=== PATIENT | female | born 1950 | race African-American/Black ===

== ENCOUNTER → 2016-10-05 14:30 | Outpatient (CLI) | payer MEDICARE, MEDICAID ==
[2015-08-11 23:16] VITALS: BMI 27.5
[~2016-10-05 14:30] MED LIST: ASPIRIN325 MG PO; BAYER CHEWABLE81 MG PO; HYDROCHLOROTHIA25 MG PO; METOPROLOL TAR100 M1 PO; NORVASC10 MG PO; PLAVIX75 MG PO; ZANAFLEX4 MG PO
== END | disposition home or self-care (01) ==
LOC: D.US 14:30
DX: R79.1 Abnormal coagulation profile (principal)

== ENCOUNTER 2016-10-21 15:56 | Emergency (ER) | payer MEDICARE, MEDICAID ==
[2015-08-11 23:16] VITALS: BMI 27.5
[2016-10-21 16:25] LABS: BASOPHILS 0.1 % (0.0-2.0); EOSINOPHILS 0.9 % (0-7); HEMATOCRIT 28.5 % (36.0-48.0); HEMOGLOBIN 9.7 g/dL (12-16); IMMATURE GRANULOCYTES 0.2 % (0-5); LYMPHOCYTES 13.9 % (15-50); MCH 30.8 pg (26.0-34.0); MCV 90.5 fL (80.0-100.0); MONOCYTES 11.6 % (2-11); NEUTROPHILS 73.3 % (40-80); RBC 3.15 10x6/uL (4.00-5.40); RDW 14.2 % (11.5-14.5); WBC 9.3 10x3/uL (4.8-10.8)
[2016-10-21 16:27] LABS: PLATELET COUNT 151 10x3/uL (130-400)
[2016-10-21 16:42] LABS: ALBUMIN 3.3 g/dL (3.4-5.0); ALKALINE PHOSPHATASE 55 U/L (46-116); ALT (SGPT) 9 U/L (10-68); CALC OSMOLALITY 284 mosm/kg (275-300); CALCIUM 8.6 mg/dL (8.5-10.1); CARBON DIOXIDE 23.1 mmol/L (21.0-32.0); CHLORIDE - SERUM 101 mmol/L (98-107); CREATININE - SERUM 1.6 mg/dL (0.6-1.3); GLUCOSE 106 mg/dL (74-106); PROTEIN - SERUM 8.8 g/dL (6.4-8.2); SODIUM 140 mmol/L (136-145); UREA NITROGEN 30 mg/dL (7-18); eGFR NON AFRICAN AMERICAN 34 mL/min (90-120)
[2016-10-21 17:11] LABS: CHOL - HDL RATIO 2.6 ratio (2.3-4.1); CHOLESTEROL, TOTAL 179 mg/dL (0-200); CKMB 0.4 U/L (0.0-3.6); CREATINE KINASE 48 UL (21-215); HDL CHOLESTEROL 69 mg/dL (32-96); LDL CHOLESTEROL 79 mg/dL (0-100); LDL-HDL RATIO 1.1 ratio (1.5-3.5); TRIGLYCERIDE 155 mg/dL (30-200); TROPONIN-I < 0.017 ng/mL (0.000-0.060)
== END 2016-10-21 18:10 | disposition home or self-care (01) ==
LOC: D.ER 15:56
PROVIDERS: Emergency Medicine
DX: R07.9 Chest pain, unspecified (principal); I25.10 Atherosclerotic heart disease of native coronary artery without angina pectoris; I10 Essential (primary) hypertension; I73.9 Peripheral vascular disease, unspecified; F17.200 Nicotine dependence, unspecified, uncomplicated

== ENCOUNTER 2016-10-25 16:36 | Emergency (ER) | payer MEDICARE, MEDICAID ==
[2015-08-11 23:16] VITALS: BMI 27.5
== END 2016-10-25 18:58 | disposition home or self-care (01) ==
LOC: D.ER 16:36
DX: M16.12 Unilateral primary osteoarthritis, left hip (principal); M25.552 Pain in left hip; I25.10 Atherosclerotic heart disease of native coronary artery without angina pectoris; I73.9 Peripheral vascular disease, unspecified; F17.200 Nicotine dependence, unspecified, uncomplicated

== ENCOUNTER 2017-01-21 16:47 | Emergency (ER) | payer MEDICARE, MEDICAID ==
[2015-08-11 23:16] VITALS: BMI 27.5
== END 2017-01-21 19:25 | disposition left against medical advice (07) ==
LOC: D.ER 16:47
DX: M54.2 Cervicalgia (principal)

== ENCOUNTER 2017-03-10 07:58 | Emergency (ER) | payer MEDICARE, MEDICAID ==
[2015-08-11 23:16] VITALS: BMI 27.5
[2017-03-10 08:53] LABS: BASOPHILS 0.2 % (0-2); EOSINOPHILS 1.8 % (0-7); HEMATOCRIT 33.1 % (36.0-48.0); HEMOGLOBIN 11.1 g/dL (12-16); IMMATURE GRANULOCYTES 0.2 % (0-5); LYMPHOCYTES 27.8 % (15-50); MCH 30.2 pg (26.0-34.0); MCHC 33.5 g/dL (31.0-37.0); MCV 90.2 fL (80.0-100.0); MEAN PLATELET VOLUME 10.7 fL (7.4-10.4); MONOCYTES 11.1 % (2-11); NEUTROPHILS 58.9 % (40-80); PLATELET COUNT 172 10x3/uL (130-400); RBC 3.67 10x6/uL (4.00-5.40); RDW 14.7 % (11.5-14.5); WBC 8.2 10x3/uL (4.8-10.8)
[2017-03-10 09:10] LABS: ALKALINE PHOSPHATASE 67 U/L (46-116); ALT (SGPT) 12 U/L (10-68); BILIRUBIN - TOTAL 0.48 mg/dL (0.2-1.3); CALC OSMOLALITY 288 mosm/kg (275-300); CALCIUM 9.5 mg/dL (8.5-10.1); CARBON DIOXIDE 21.3 mmol/L (21.0-32.0); CHLORIDE - SERUM 101 mmol/L (98-107); CREATININE - SERUM 1.9 mg/dL (0.6-1.3); GLUCOSE 104 mg/dL (74-106); POTASSIUM - SERUM 3.4 mmol/L (3.5-5.1); PROTEIN - SERUM 9.6 g/dL (6.4-8.2); SODIUM 138 mmol/L (136-145); UREA NITROGEN 49 mg/dL (7-18); eGFR NON AFRICAN AMERICAN 28 mL/min (90-120)
[2017-03-10 09:21] LABS: CHOL - HDL RATIO 2.5 ratio (2.3-4.1); CHOLESTEROL, TOTAL 188 mg/dL (0-200); CREATINE KINASE 76 UL (21-215); HDL CHOLESTEROL 74 mg/dL (32-96); LDL CHOLESTEROL 74 mg/dL (0-100); TRIGLYCERIDE 202 mg/dL (30-200)
[2017-03-10 09:22] LABS: TROPONIN-I < 0.017 ng/mL (0.000-0.060)
== END 2017-03-10 11:39 | disposition home or self-care (01) ==
LOC: D.ER 07:58
PROVIDERS: Family Medicine
DX: M79.1 Myalgia (principal); F17.200 Nicotine dependence, unspecified, uncomplicated; I10 Essential (primary) hypertension; M54.2 Cervicalgia

== ENCOUNTER 2017-03-27 06:56 | Emergency (ER) | payer MEDICARE, MEDICAID ==
[2015-08-11 23:16] VITALS: BMI 27.5
[2017-03-27 07:39] LABS: BASOPHILS 0.2 % (0-2); EOSINOPHILS 6.9 % (0-7); HEMOGLOBIN 11.1 g/dL (12-16); IMMATURE GRANULOCYTES 0.2 % (0-5); LYMPHOCYTES 19.5 % (15-50); MCH 30.4 pg (26.0-34.0); MCHC 33.6 g/dL (31.0-37.0); MCV 90.4 fL (80.0-100.0); MEAN PLATELET VOLUME 10.6 fL (7.4-10.4); MONOCYTES 9.5 % (2-11); NEUTROPHILS 63.7 % (40-80); RBC 3.65 10x6/uL (4.00-5.40); RDW 14.2 % (11.5-14.5); WBC 9.2 10x3/uL (4.8-10.8)
[2017-03-27 07:52] LABS: PLATELET COUNT 218 10x3/uL (130-400)
[2017-03-27 08:05] LABS: ALKALINE PHOSPHATASE 83 U/L (46-116); ALT (SGPT) 15 U/L (10-68); BILIRUBIN - TOTAL 0.24 mg/dL (0.2-1.3); CALC OSMOLALITY 286 mosm/kg (275-300); CARBON DIOXIDE 26.6 mmol/L (21.0-32.0); CHLORIDE - SERUM 97 mmol/L (98-107); CREATINE KINASE 67 UL (21-215); CREATININE - SERUM 2.5 mg/dL (0.6-1.3); GLUCOSE 92 mg/dL (74-106); POTASSIUM - SERUM 3.8 mmol/L (3.5-5.1); PROTEIN - SERUM 9.7 g/dL (6.4-8.2); SODIUM 137 mmol/L (136-145); UREA NITROGEN 50 mg/dL (7-18); eGFR NON AFRICAN AMERICAN 20 mL/min (90-120)
[2017-03-27 08:08] LABS: CALCIUM 9.7 mg/dL (8.5-10.1); TROPONIN-I < 0.017 ng/mL (0.000-0.060)
== END 2017-03-27 10:36 | disposition home or self-care (01) ==
LOC: D.ER 06:56
PROVIDERS: Emergency Medicine
DX: R07.9 Chest pain, unspecified (principal); I25.10 Atherosclerotic heart disease of native coronary artery without angina pectoris; N17.9 Acute kidney failure, unspecified; E86.0 Dehydration; D64.9 Anemia, unspecified; K59.00 Constipation, unspecified; I10 Essential (primary) hypertension; Z86.73 Personal history of transient ischemic attack (TIA), and cerebral infarction without residual deficits; F17.200 Nicotine dependence, unspecified, uncomplicated

== ENCOUNTER 2017-04-02 23:56 | Emergency (ER) | payer MEDICARE, MEDICAID ==
[2015-08-11 23:16] VITALS: BMI 27.5
== END 2017-04-03 02:02 | disposition home or self-care (01) ==
LOC: D.ER 23:56
DX: M54.12 Radiculopathy, cervical region (principal); F17.200 Nicotine dependence, unspecified, uncomplicated

== ENCOUNTER 2017-05-23 09:12 | Emergency (ER) | payer MEDICARE, MEDICAID ==
[2015-08-11 23:16] VITALS: BMI 27.5
== END 2017-05-23 11:08 | disposition home or self-care (01) ==
LOC: D.ER 09:12
DX: M10.9 Gout, unspecified (principal); M25.531 Pain in right wrist; M79.601 Pain in right arm; G89.29 Other chronic pain

== ENCOUNTER 2017-12-06 13:58 | Emergency (ER) | payer MEDICARE, MEDICAID ==
[2015-08-11 23:16] VITALS: BMI 27.5
== END 2017-12-06 15:38 | disposition home or self-care (01) ==
LOC: D.ER 13:58
DX: M25.562 Pain in left knee (principal); M25.561 Pain in right knee; M10.062 Idiopathic gout, left knee; M10.061 Idiopathic gout, right knee; F17.200 Nicotine dependence, unspecified, uncomplicated

== ENCOUNTER 2018-01-23 11:46 | Observation (INO) | payer MEDICARE, MEDICAID ==
[~2018-01-23] VITALS: Ht 162.6 cm; Wt 52.5 kg
[2018-01-23 12:29] LABS: BASOPHILS 0.3 % (0-2); HEMATOCRIT 34.1 % (36.0-48.0); HEMOGLOBIN 11.4 g/dL (12-16); IMMATURE GRANULOCYTES 0.3 % (0-5); LYMPHOCYTES 34.5 % (15-50); MCH 29.7 pg (26.0-34.0); MCHC 33.4 g/dL (31.0-37.0); MCV 88.8 fL (80.0-100.0); MEAN PLATELET VOLUME 10.4 fL (7.4-10.4); MONOCYTES 11.1 % (2-11); NEUTROPHILS 51.8 % (40-80); PLATELET COUNT 211 10x3/uL (130-400); RBC 3.84 10x6/uL (4.00-5.40); RDW 15.2 % (11.5-14.5); WBC 7.4 10x3/uL (4.8-10.8)
[2018-01-23 12:31] LABS: INR 1.05 (0.85-1.17); PROTIME 13.3 SECONDS (11.6-15.0)
[2018-01-23 12:32] LABS: APTT 23.7 SECONDS (22.8-39.4)
[2018-01-23 12:40] LABS: ALBUMIN 3.8 g/dL (3.4-5.0); ALKALINE PHOSPHATASE 74 U/L (46-116); ALT (SGPT) 16 U/L (10-68); BILIRUBIN - TOTAL 0.33 mg/dL (0.2-1.3); CALC OSMOLALITY 287 mosm/kg (275-300); CALCIUM 8.9 mg/dL (8.5-10.1); CARBON DIOXIDE 25.6 mmol/L (21.0-32.0); CHLORIDE - SERUM 102 mmol/L (98-107); CREATININE - SERUM 1.2 mg/dL (0.6-1.3); GLUCOSE 92 mg/dL (74-106); POTASSIUM - SERUM 3.3 mmol/L (3.5-5.1); PROTEIN - SERUM 9.1 g/dL (6.4-8.2); SODIUM 143 mmol/L (136-145); UREA NITROGEN 20 mg/dL (7-18); eGFR NON AFRICAN AMERICAN 47 mL/min (90-120)
[2018-01-23 12:52] LABS: CREATINE KINASE 58 UL (21-215)
[2018-01-23 12:53] LABS: TROPONIN-I < 0.017 ng/mL (0.000-0.060)
[2018-01-23 20:00] VITALS: BP 108/58
[2018-01-23 20:28] LABS: TROPONIN-I < 0.017 ng/mL (0.000-0.060)
[2018-01-23] MEDS ORDERED: ISOSORBIDE MONO60 M1 PO (22:27)
[2018-01-23] MEDS ORDERED: AZOR 10-40 MG T1 TAB PO (22:27)
[2018-01-23] MEDS ORDERED: NITROQUICK0.4 MG SL (22:27)
[2018-01-23] MEDS ORDERED: HYDROCODON-ACE1 EAC7 PO (22:28)
[2018-01-23 22:32] VITALS: BP 97/59; BMI 20.1
[2018-01-24] VITALS: BP 116/54
[2018-01-24 02:49] LABS: TROPONIN-I < 0.017 ng/mL (0.000-0.060)
[2018-01-24 04:00] VITALS: BP 120/53
[2018-01-24 07:52] VITALS: BP 148/58
[2018-01-24 08:14] LABS: BASOPHILS 0.3 % (0-2); HEMATOCRIT 29.6 % (36.0-48.0); HEMOGLOBIN 9.6 g/dL (12-16); IMMATURE GRANULOCYTES 0.1 % (0-5); LYMPHOCYTES 37.3 % (15-50); MCH 29.1 pg (26.0-34.0); MCHC 32.4 g/dL (31.0-37.0); MCV 89.7 fL (80.0-100.0); MEAN PLATELET VOLUME 10.6 fL (7.4-10.4); MONOCYTES 14.3 % (2-11); PLATELET COUNT 181 10x3/uL (130-400); RDW 15.3 % (11.5-14.5); WBC 8.6 10x3/uL (4.8-10.8)
[2018-01-24 08:24] LABS: ANION GAP 18.3 mmol/L (8-16); CALCIUM 7.9 mg/dL (8.5-10.1); CARBON DIOXIDE 22.1 mmol/L (21.0-32.0); CREATININE - SERUM 1.2 mg/dL (0.6-1.3); POTASSIUM - SERUM 3.4 mmol/L (3.5-5.1)
[2018-01-24] MEDS ORDERED: PROTONIX40 MG PO (12:25)
[2018-01-24 12:26] VITALS: Ht 162.6 cm; Wt 52.5 kg
[2018-01-24 15:24] VITALS: BP 123/57
== END 2018-01-24 19:14 | disposition home or self-care (01) ==
LOC: D.ER 11:46 → OBSVTIME 13:50 → D.EDHOLD 13:50 → D.M2 13:50
PROVIDERS: Emergency Medicine; Internal Medicine Interventional Cardiology
DX: I25.10 Atherosclerotic heart disease of native coronary artery without angina pectoris (principal); I10 Essential (primary) hypertension; Z86.73 Personal history of transient ischemic attack (TIA), and cerebral infarction without residual deficits; G40.909 Epilepsy, unspecified, not intractable, without status epilepticus; K21.9 Gastro-esophageal reflux disease without esophagitis; H54.7 Unspecified visual loss

== ENCOUNTER 2020-04-25 16:31 | Emergency (ER) | payer MEDICARE, MEDICAID ==
[~2020-04-25] VITALS: Ht 162.6 cm; Wt 52.3 kg
[~2020-04-25 16:31] MED LIST changes: +AZOR 10-40 MG T1 TAB PO; +HYDROCODON-ACE1 EAC7 PO; +ISOSORBIDE MONO60 M1 PO; +NITROQUICK0.4 MG SL; +PROTONIX40 MG PO
[2020-04-25 16:44] VITALS: BP 115/70; Ht 162.6 cm; Wt 52.3 kg
[2020-04-25 17:41] LABS: APTT 23.8 SECONDS (22.8-39.4); INR 1.1 (0.85-1.17); PROTIME 14.1 SECONDS (11.6-15.0)
== END 2020-04-25 18:05 | disposition home or self-care (01) ==
LOC: D.ER 16:31
PROVIDERS: Family Medicine
DX: S00.83XA Contusion of other part of head, initial encounter (principal); W19.XXXA Unspecified fall, initial encounter; Y93.9 Activity, unspecified; Y92.9 Unspecified place or not applicable; Z86.73 Personal history of transient ischemic attack (TIA), and cerebral infarction without residual deficits; I10 Essential (primary) hypertension; I25.2 Old myocardial infarction

== ENCOUNTER 2020-05-16 13:13 | Inpatient (IN) | payer MEDICARE, MEDICAID ==
[~2020-05-16] VITALS: Ht 162.6 cm; Wt 49.0 kg
[2020-05-16 14:00] VITALS: BP 148/59
[2020-05-16 14:36] LABS: ALBUMIN 3.8 g/dL (3.4-5.0); ALKALINE PHOSPHATASE 61 U/L (30-120); ALT (SGPT) 16 U/L (10-68); BILIRUBIN - TOTAL 0.31 mg/dL (0.2-1.3); CALCIUM 7.4 mg/dL (8.5-10.1); CARBON DIOXIDE 17.3 mmol/L (21.0-32.0); CHLORIDE - SERUM 103 mmol/L (98-107); CREATINE KINASE 672 UL (21-215); CREATININE - SERUM 1.7 mg/dL (0.6-1.3); PROTEIN - SERUM 8.3 g/dL (6.4-8.2); SODIUM 140 mmol/L (136-145); UREA NITROGEN 20 mg/dL (7-18); eGFR NON AFRICAN AMERICAN 32 mL/min (90-120)
[2020-05-16 14:46] LABS: BASOPHILS 0.1 % (0-2); EOSINOPHILS 0.1 % (0-7); HEMATOCRIT 27.8 % (36.0-48.0); HEMOGLOBIN 9.2 g/dL (12-16); IMMATURE GRANULOCYTES 0.3 % (0-5); LYMPHOCYTES 7.5 % (15-50); MCH 31.6 pg (26.0-34.0); MCHC 33.1 g/dL (31.0-37.0); MCV 95.5 fL (80.0-100.0); MEAN PLATELET VOLUME 10.6 fL (7.4-10.4); MONOCYTES 8.5 % (2-11); NEUTROPHILS 83.5 % (40-80); PLATELET COUNT 187 10x3/uL (130-400); RBC 2.91 10x6/uL (4.00-5.40); RDW 15.3 % (11.5-14.5); WBC 11.6 10x3/uL (4.8-10.8)
[2020-05-16 14:47] LABS: CALC OSMOLALITY 284 mosm/kg (275-300); GLUCOSE 152 mg/dL (74-106); TROPONIN-I < 0.017 ng/mL (0.000-0.060)
[2020-05-16 14:49] LABS: POTASSIUM - SERUM 2.6 mmol/L (3.5-5.1)
[2020-05-16 14:51] LABS: APTT 23.5 SECONDS (22.8-39.4); INR 1.14 (0.85-1.17); PROTIME 14.6 SECONDS (11.6-15.0)
[2020-05-16 15:20] LABS: BILIRUBIN NEGATIVE (NEGATIVE); GLUCOSE NEGATIVE (NEGATIVE); KETONE NEGATIVE (NEGATIVE); NITRITE NEGATIVE (NEGATIVE); UROBILINOGEN NORMAL (NORMAL)
[2020-05-16 15:22] LABS: BACTERIA FEW /hpf (NEGATIVE); EPITHELIAL CELLS 0-5 /hpf (0-5); RED CELLS - URINE OCC /hpf (0-5); WHITE CELLS - URINE 0-5 /hpf (NEGATIVE)
[2020-05-16 15:56] VITALS: BP 157/60
[2020-05-16 17:00] VITALS: BP 157/54
--- NOTE | 2020-05-16 19:50 | NUR ---
LYING IN BED. ALERT AND ORIENTED TO SELF AND PLACE. CONFUSED. GEN WEAKNESS NOTED. DENIES N/V. C/O SORENESS IN RT ARM FROM FALL AT HOME. STATES SHE THINKS SHE FELL A WEEK AGO. HEMATOMA NOTED TO MID FOREHEAD. NS WITH 40 MEQ KCL @ 200 MLHR INFUSING IN RT AC. AMB WITH ASSIST. GAIT IS UNSTEADY. NO DISTRESS. SR ELEVATED X2. CL IN REACH. RHIANNON ALARM ON FOR PT SAFETY.
[2020-05-16 20:00] VITALS: BP 147/54
--- NOTE | 2020-05-16 22:30 | NUR ---
SPOKE WITH SAMPSON, EYEGLASS LENS CUTTER. NO TELEMETRY AVAILABLE
[2020-05-17 00:36] VITALS: BP 139/61; BMI 18.5
--- NOTE | 2020-05-17 02:31 | NUR ---
HAS USED CALL [facility] FOR ASSISTANCE NEEDED WITH AMBULATION. HAS BEEN UP TO VOID SEVERAL TIMES TONIGHT. CONSUMED SANDWICH. NO N/V NOTED. SR ELEVATED X2. CL IN REACH. RHIANNON ALARM ON.
[2020-05-17 04:30] VITALS: BP 136/57
--- NOTE | 2020-05-17 06:15 | NUR ---
ASSISTED UP TO BR TO VOID. HAD EPISODE OF DIARRHEA. BACK TO BED. RHIANNON ON. CL IN REACH.
[2020-05-17 06:30] LABS: BASOPHILS 0.1 % (0-2); EOSINOPHILS 0.2 % (0-7); IMMATURE GRANULOCYTES 0.2 % (0-5); LYMPHOCYTES 21.6 % (15-50); MCH 31.2 pg (26.0-34.0); MCV 94.4 fL (80.0-100.0); MEAN PLATELET VOLUME 10.5 fL (7.4-10.4); MONOCYTES 10.5 % (2-11); NEUTROPHILS 67.4 % (40-80); RDW 15.5 % (11.5-14.5)
[2020-05-17 07:17] LABS: RBC 2.31 10x6/uL (4.00-5.40)
[2020-05-17 07:18] LABS: HEMATOCRIT 21.8 % (36.0-48.0); HEMOGLOBIN 7.2 g/dL (12-16); PLATELET COUNT 147 10x3/uL (130-400)
--- NOTE | 2020-05-17 07:40 | NUR ---
ASSESSMENT PER FLOW SHEET. PATIENT HAS BEEN TO BATHROOM TO VOID. NO NAUSEA OR VOMITING. REPORTS NO BLEEDING. FALL PREVENTION IN PLACE WITH RHIANNON MAT. MONITOR FOR NEEDS.
[2020-05-17 08:00] VITALS: BP 139/63
[2020-05-17 09:01] LABS: HEMATOCRIT 24.3 % (36.0-48.0); HEMOGLOBIN 7.9 g/dL (12-16)
[2020-05-17 09:17] LABS: ALBUMIN 3.1 g/dL (3.4-5.0); BILIRUBIN - TOTAL 0.32 mg/dL (0.2-1.3); CARBON DIOXIDE 17.9 mmol/L (21.0-32.0); PHOSPHOROUS 1.9 mg/dL (2.5-4.9); PROTEIN - SERUM 6.8 g/dL (6.4-8.2)
[2020-05-17 09:26] LABS: ANION GAP 15.3 mmol/L (8-16); POTASSIUM - SERUM 4.2 mmol/L (3.5-5.1)
[2020-05-17 09:27] LABS: CALCIUM 6.8 mg/dL (8.5-10.1); MAGNESIUM - SERUM 0.7 mg/dL (1.8-2.4)
[2020-05-17 13:19] VITALS: BP 92/46; BMI 18.5
[2020-05-17 16:00] VITALS: BP 122/59
--- NOTE | 2020-05-17 17:47 | NUR ---
REMAINS WITHOUT NEEDS. TOLERATED BLOOD ORDERED WITHOUT REACTIONS.CONT PLAN OF CARE
[2020-05-17 20:00] VITALS: BP 155/74
--- NOTE | 2020-05-17 20:00 | NUR ---
LYING IN BED. ALERT AND ORIENTED X2, SELF AND PLACE. CONFUSED. RHIANNON ALARM ON. TRIES TO GET UP WITHOUT ASSISTANCE. FORGETFUL. RESP EVEN AND NONLABORED. HEMATOMA NOTED TO FOREHEAD. SPOKE WITH NURSES' REGISTRY DIRECTORSAMPSON LOMBARDI, NO TELEMETRY AVAILABLE AT THIS TIME. NS WITH 40 MEQ KCL @ 200 ML/HR INFUSING IN RT AC. GAIT IS SLIGHTLY UNSTEADY. DENIES PAIN. HAS SOME SORENESS IN RUE. SR ELEVATED X2. CL IN REACH.
--- NOTE | 2020-05-18 03:30 | NUR ---
HAS BEEN UP AND DOWN TO BR MULTIPLE TIMES TONIGHT TO VOID. FAILS TO USE CALL LIGHT AT TIMES AND CAUSES BED ALARM TO ACTIVATE AND GETS AGITATES. HAD DIARRHEA STOOL BUT WAS MIXED WITH URINE IN COLLECTION HAT.
[2020-05-18 04:00] VITALS: BP 134/63
[2020-05-18 06:08] LABS: BASOPHILS 0.1 % (0-2); IMMATURE GRANULOCYTES 0.4 % (0-5); LYMPHOCYTES 20.2 % (15-50); MCH 31.4 pg (26.0-34.0); MCHC 33.4 g/dL (31.0-37.0); MEAN PLATELET VOLUME 9.5 fL (7.4-10.4); MONOCYTES 9.2 % (2-11); NEUTROPHILS 69.1 % (40-80); PLATELET COUNT 159 10x3/uL (130-400); RDW 16.7 % (11.5-14.5); WBC 9.3 10x3/uL (4.8-10.8)
--- NOTE | 2020-05-18 06:29 | NUR ---
RHIANNON WAIVER SIGNED AND PT AWARE OF RISKS ASSOCIATED WITH NOT HAVING BED ALARM
[2020-05-18 07:14] LABS: % SATURATION 10 % (15-55); IRON 22 ug/dl (35-150); TOTAL IRON BIND CAPACITY 203 ug/dl (260-445); UNSAT IRON BIND CAPACITY 181 ug/dl (150-375)
[2020-05-18 07:35] LABS: ALBUMIN 3.6 g/dL (3.4-5.0); BILIRUBIN - TOTAL 0.29 mg/dL (0.2-1.3); CALCIUM 7.5 mg/dL (8.5-10.1); CARBON DIOXIDE 16.8 mmol/L (21.0-32.0); CREATININE - SERUM 1.2 mg/dL (0.6-1.3); MAGNESIUM - SERUM 1.5 mg/dL (1.8-2.4); PHOSPHOROUS 2.2 mg/dL (2.5-4.9); PROTEIN - SERUM 8.3 g/dL (6.4-8.2)
[2020-05-18 07:40] LABS: ANION GAP 18.7 mmol/L (8-16); HEMATOCRIT 32.9 % (36.0-48.0); POTASSIUM - SERUM 5.5 mmol/L (3.5-5.1)
[2020-05-18 08:46] VITALS: BP 127/78
[2020-05-18 12:17] VITALS: BP 130/62
--- NOTE | 2020-05-18 12:50 | NUR ---
I have reviewed this patient and I concur with the Shift Assessment completed by the Licensed Practical Nurse today this shift.
--- NOTE | 2020-05-18 17:53 | NUR ---
PT BECAME VERY AGITATED AND WANTED TO LEAVE AND GO HOME. SHE HAD LEFT OFF OF THE FLOOR AND THIS NURSE HAD TO GO AND FIND OUT WHERE SHE WAS, MEET PT COMING FROM AROUND BY THE X-RAY DEPARTMENT. PT AND NURSE WALKED BACK TO THE FLOOR CALL WAS PLACED TO Charlotte BRYANT APN AND HE WAS BROUGHT UP TO SPEED ON PT WANTING TO LEAVE THIS NURSE INFORMED HIM THAT PT IS CONFUSED AND THAT HER SISTER IS UNREACHABLE AT THIS TIME. HOUSE SUPERVISER WAS CALLED AND SHE ASKED " WHAT ARE YOU CALLING ME FOR." THE TRIMMER PRESS CLIPPINGS LANDEN TOLD ME TO CALL YOU. HS THEN STATED " LET ME LET YOU SPEAKE WITH NILDA STATION ENGINEER." SPOKE WITH STATION ENGINEER BY NOW Charlotte BRYANT HAD MADE IT TO THE FLOOR AND SPEAKING WITH PT. THIS NURSE INFORMED TIAGO THAT SHE IS UPSET BECAUSE SHE CAN'T GO OUT TO SMOKE. PT FINALLY CALMED DOWN AND AGREED TO STAY FOR NOW. DID REC'D ORDER FOR HALDOL 0.5 MG X 1 DOSE IF NEEDED. CONTINUE TO REFUSED TO BE RESITED AT THIS TIME. C/L IN REACH AT BEDSIDE.
[2020-05-18 20:00] VITALS: BP 103/52
--- NOTE | 2020-05-18 20:00 | NUR ---
PT SITTING UP ON SIDE OF BED. CONFUSED TO TIME AND SITUATION. REFUSES TO HAVE IV PLACED. FULLY DRESSING AND ASKING FOR BAGS TO PACK HER THINGS. STATES SHE JUST WANTS THEM IN ONE PLACE. PLEASANT AT THIS TIME, NO COMPLAINTS OR NEEDS. CL IN REACH, WILL CTM
--- NOTE | 2020-05-18 22:12 | NUR ---
OT NOTE; PT SITTING AT EOB WITH SPV. PT COMPLETED SIT TO STAND WITH CGA. PT COMPLETED HYGIENE TASKS WITH SETUP. [phone] THANK YOU,ELIZABETH DIAZ
--- NOTE | 2020-05-18 23:00 | NUR ---
PT CAME OUT OF ROOM, WALKING DOWN HALLWAY LOOKING AROUND THE CORNER OF THE NURSES STATION. ASKED PT WHAT SHE NEEDED, SHE STATES SHE IS "JUST GOING TO GET CIGARETTES, ASKED PT WHERE SHE WAS GOING TO GET THEM, SHE STATES SHE WAS HEADED TO [place]. TOLD PT SHE COULD NOT LEAVE WHILE ADMITTED. PT CONFUSED TO WHY SHE COULD NOT BUT WENT BACK TO ROOM AND SAT IN BED. WILL CTM
[2020-05-19 04:00] VITALS: BP 135/69
--- NOTE | 2020-05-19 04:05 | NUR ---
PT CAME OUT INTO HALLWAY HOLDING CAR KEYS AND LOOKING FOR EXIT. ASKED PT WHAT SHE WANTED, SHE STATED AGAIN SHE WAS GOING TO [facility] [employer] TO GET CIGARETTES, PT CANNOT TELL ME WHAT TIME IT IS OR WHAT IS GOING ON. ASSISTED PT BACK TO ROOM AND EXPLAINED SHE COULD NOT LEAVE HOSPITAL A PATIENT, NOT UNTIL DISCHARGED. PT NOT HAPPY BUT WENT BACK TO ROOM. PROVIDED WATER. DENIES OTHER NEEDS, WILL CTM
[2020-05-19 08:50] LABS: BASOPHILS 0.1 % (0-2); EOSINOPHILS 1.7 % (0-7); HEMATOCRIT 28.5 % (36.0-48.0); HEMOGLOBIN 9.2 g/dL (12-16); IMMATURE GRANULOCYTES 0.1 % (0-5); LYMPHOCYTES 22.7 % (15-50); MCHC 32.3 g/dL (31.0-37.0); MEAN PLATELET VOLUME 10.2 fL (7.4-10.4); MONOCYTES 10.6 % (2-11); NEUTROPHILS 64.8 % (40-80); PLATELET COUNT 153 10x3/uL (130-400); RBC 2.97 10x6/uL (4.00-5.40); RDW 16.5 % (11.5-14.5); WBC 7.4 10x3/uL (4.8-10.8)
[2020-05-19 08:55] LABS: ALBUMIN 3.2 g/dL (3.4-5.0); ANION GAP 16.7 mmol/L (8-16); BILIRUBIN - TOTAL 0.31 mg/dL (0.2-1.3); CARBON DIOXIDE 17.4 mmol/L (21.0-32.0); CREATININE - SERUM 1.1 mg/dL (0.6-1.3); MAGNESIUM - SERUM 1.2 mg/dL (1.8-2.4); PROTEIN - SERUM 6.9 g/dL (6.4-8.2)
[2020-05-19 09:09] LABS: PHOSPHOROUS 2.9 mg/dL (2.5-4.9)
[2020-05-19 09:10] LABS: POTASSIUM - SERUM 6.1 mmol/L (3.5-5.1)
[2020-05-19 09:48] VITALS: BP 114/60
[2020-05-19 12:58] VITALS: BP 106/54
--- NOTE | 2020-05-19 14:20 | NUR ---
OT NOTE: CONTINUED PAIN IN R UE.. REPORTS PAIN IN MID SHAFT OF HUMERUS..PAINFUL WHEN PALPATING THAT AREA. AROM SHOULDER FLEX ONLY 30 DEGREES BEFORE INTOLERANT DUE TO PAIN.. PT CANT SEEM TO FOLLOW PROM..PT AMB TO AND FROM BATHROOM WITH IV POLE WITH SPV; AMB THROUGHOUT HALLWAY WITH GAIT BELT AND ASSIST WITH IV POLE X 100+ FT. NO FATIGUE OR SOB NOTED. SAL RAMON, OTR/L 130-146
--- NOTE | 2020-05-19 14:32 | NUR ---
I have reviewed this patient and I concur with the Shift Assessment completed by the Licensed Practical Nurse today this shift.
[2020-05-19 17:23] VITALS: BP 120/71
[2020-05-19 20:00] VITALS: BP 118/58
--- NOTE | 2020-05-19 20:00 | NUR ---
PT SITTING UP ON SIDE OF BED, WITHOUT DISRESS. ORIENTED TO SELF AND PLACE. DENIES PAIN OR NEEDS. IV RIGHT WRIST INFUSING NS @ 100. CL IN REACH, WILL CTM
[2020-05-20] VITALS: BP 115/50
[2020-05-20 04:00] VITALS: BP 111/61
[2020-05-20 05:36] LABS: BASOPHILS 0.1 % (0-2); EOSINOPHILS 3.1 % (0-7); HEMATOCRIT 28.9 % (36.0-48.0); HEMOGLOBIN 9.4 g/dL (12-16); IMMATURE GRANULOCYTES 0.1 % (0-5); LYMPHOCYTES 33.1 % (15-50); MCH 31.3 pg (26.0-34.0); MCHC 32.5 g/dL (31.0-37.0); MCV 96.3 fL (80.0-100.0); MEAN PLATELET VOLUME 10.3 fL (7.4-10.4); MONOCYTES 9.9 % (2-11); NEUTROPHILS 53.7 % (40-80); PLATELET COUNT 136 10x3/uL (130-400); RDW 16.2 % (11.5-14.5); WBC 6.7 10x3/uL (4.8-10.8)
[2020-05-20 05:59] LABS: ALBUMIN 3.1 g/dL (3.4-5.0); ANION GAP 17.3 mmol/L (8-16); BILIRUBIN - TOTAL 0.24 mg/dL (0.2-1.3); CALCIUM 8.7 mg/dL (8.5-10.1); CARBON DIOXIDE 17.9 mmol/L (21.0-32.0); CREATININE - SERUM 1.2 mg/dL (0.6-1.3); MAGNESIUM - SERUM 1.3 mg/dL (1.8-2.4); PHOSPHOROUS 3.6 mg/dL (2.5-4.9); POTASSIUM - SERUM 5.2 mmol/L (3.5-5.1); PROTEIN - SERUM 6.6 g/dL (6.4-8.2)
--- NOTE | 2020-05-20 09:09 | CN ---
PATIENT NAME:MARLI SEQUEIRA MEDICAL RECORD: [id number] : 50 LOCATION:[facility] ADMIT DATE: 05/16/20 ACCOUNT: [id number] CONSULTING PHYSICIAN: BUSHRA HYMAN MD REFERRING PHYSICIAN: CRESCENCIO GOODE MD DATE OF CONSULTATION: 05/19/2020 IDENTIFYING DATA: The patient is 69 years old and she is admitted to the hospital secondary to urinary tract infection. CHIEF COMPLAINT: Confusion. HISTORY OF PRESENT ILLNESS: The patient is a very nice cooperative lady who apparently has had a stroke several years ago. She has been showing some confused behavior. She was walking in the [place] with her car keys saying that she was going to drive to the [employer] to get some cigarettes. She says that she has been confused. She knows the year, but not the month. She says she does not drink excessively, but I have some reservations about whether or not she is being honest about this. Her vital signs really are not showing evidence of alcohol withdrawal but again, she is questionably reliable with her history. She certainly has no thoughts of self-harm. ASSESSMENT: 1. Delirium secondary to multiple medical factors. 2. 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 PLAN: At this time, the patient will be given a low dose of Seroquel and Klonopin to control her behaviors that may become disruptive. I do not think those need to be continued after she is discharged. I am also going to give her Geodon IM on a p.r.n. basis should she become agitated. I will also order Ativan for her should she become agitated. I think when her urinary tract infection clears there will be a better opportunity to assess her mental status. She says she lives alone, but she has 2 adult sons who live very close to her and both of them come by her house independently almost every day and assist her. I do not think psychiatric followup is necessary and I do not think she needs [facility] at [facility] point. NTS:[id number] Voice Confirmation ID: [id number] DOCUMENT ID: [id number] BUSHRA HYMAN MD at 0909 CC: [id number] DICTATION DATE: 05/19/201732 DYE EXPERT: 05/19/20 1759 ADM IN [facility] [address] [place] [address]
[2020-05-20 09:17] VITALS: BP 137/61
--- NOTE | 2020-05-20 10:47 | NUR ---
ASSESSMENT PER FLOW SHEET. PATIENT IS WITHOUT DISTRESS.INT CONFUSION THIS AM.MONITOR FOR NEEDS.CALL LIGHT IN REACH
[2020-05-20] MEDS ORDERED: FLORAJEN3 CAPS460 MG PO (11:50)
[2020-05-20] MEDS ORDERED: NICODERM CQ1 EAC3 TRANSDERM (11:50)
[2020-05-20] MEDS ORDERED: MAG-OX 400 MG400 MG PO (11:50)
[2020-05-20] MEDS ORDERED: VITAMIN B-1100 M1 PO (11:51)
[2020-05-20] MEDS ORDERED: FOLIC ACID1 MG PO (11:51)
[2020-05-20] MEDS ORDERED: CYANOCOBAL1000 MCG/4 SC (11:51)
[2020-05-20] MEDS ORDERED: MULTI-DAY VITAM1 TAB PO (11:51)
[2020-05-20 12:05] VITALS: Ht 162.6 cm; Wt 49.0 kg
[2020-05-20] MEDS ORDERED: FLAGYL500 MG PO (12:24)
[2020-05-20 12:53] VITALS: BP 139/62
--- NOTE | 2020-05-20 12:57 | MORECARE ---
CASE MANAGEMENT DISCHARGE SUMMARY PATIENT: MARLI SEQUEIRA UNIT: [id number] ADM DATE: 05/16/20 AGE: 69 : 50 SEX: F ROOM/BED: D.2217 AUTHOR: AKOSUA GUSMAN PHYSICIAN: REFERRING PHYSICIAN: CRESCENCIO GOODE MD DATE OF SERVICE: 05/20/20 Discharge Plan Patient Name: MARLI SEQUEIRA [facility] [facility] 1950 Planned Disposition: Home with Home Health Anticipated Discharge Date: Discharge Date: Expected LOS: Initial Reviewer: [email or web address] Initial Review Date: 05/16/2020 Generated: 05/20/20 1:56 pm Coverage Notice Reviewer: [id number] Diane Montiel Notice Issued Date-Time: 05/20/2020 12:50 Notice Type: IM Discharge Notice Notice Delivered To: Patient Relationship to Patient: Steam Distribution Supervisor Name: Delivery Method: HAND - Hand Delivered Andra Days: Prior Verbal Notification: Recipient Understood Notice: Yes Recipient Signature: Yes Med Rec Note Co-signed by Attending: Coverage Notice Comment: IMM SERVED AND EXPLAINED Reviewer: [id number] Diane Montiel Notice Issued Date-Time: 05/20/2020 12:50 Notice Type: Patient Choice Letter Notice Delivered To: Patient Relationship to Patient: Steam Distribution Supervisor Name: Delivery Method: HAND - Hand Delivered Andra Days: Prior Verbal Notification: Recipient Understood Notice: Yes Recipient Signature: Yes Med Rec Note Co-signed by Attending: Coverage Notice Comment: [facility] DID NOT CARE LONG THEY TOOK HER INSURANCE Patient Name: MARLI SEQUEIRA Page [phone] at 1257 All edits/amendments must be made on the electronic document DICTATION DATE: 05/20/20 1256 PROJECTION WELDING MACHINE OPERATOR: ADAM 05/20/20 1256 RPT#: [id number] [place] DATE: STATUS: ADM IN [facility] [address] [place] [address] END OF REPORT
--- NOTE | 2020-05-20 13:05 | MORECARE ---
CASE MANAGEMENT DISCHARGE SUMMARY PATIENT: MARLI SEQUEIRA UNIT: [id number] ADM DATE: 05/16/20 AGE: 69 : 50 SEX: F ROOM/BED: D.2217 AUTHOR: NASEEMDOC PHYSICIAN: REFERRING PHYSICIAN: CRESCENCIO GOODE MD DATE OF SERVICE: 05/20/20 Discharge Plan Patient Name: MARLI SEQUEIRA Facility: [facility]:[place] : 1950 Planned Disposition: Home with Home Health Anticipated Discharge Date: Discharge Date: Expected LOS: Initial Reviewer: [email or web address] Initial Review Date: 05/16/2020 Generated: 05/20/20 2:04 pm Comments DCP- Discharge Planning Updated by [email or web address]: Stefanie Montiel on 05/20/20 12:[address] Patient Name: MARLI SEQUEIRA Admission Status: ER Accout number: [id number] Admission Date: 05-16-2020 : 1950 Admission Diagnosis:ACUTE KIDNEY FAILURE, UNSPECIFIED Attending: CRESCENCIO TELLEZ Current LOS: 4 Anticipated DC Date: Planned Disposition: Home with Home Health Primary Insurance: [employer] ADV Discharge Planning Comments: CM met with patient to complete initial dc planning assessment. CM educated patient on the CM role and verbal consent given by patient to complete assessment. Patient lives at home by herself where she states she is independent with her care. At discharge patient plans to return home and feels this is a safe discharge. CM discussed availability of home health, rehab services, and medical equipment. Patient has a cane and a walker at home. She does not use them all the time. Patient is agreeable to home health where as long as they take her insurance. IMM served and explained. She is trying to get a hold of her sister to drive her home. She said that her sister also has her keys. IMM served and signed. Patient denied known discharge needs at this time. CM will continue to follow and will assist as needed with dc plans/needs. Applications Engineer: Stefanie Montiel DCPIA - Discharge Planning Initial Assessment Updated by [email or web address]: Stefanie Montiel on 05/20/20 12:57 pm * Is the patient Alert and Oriented? Yes * How many steps to enter\exit or inside your home? 1 FLIGHT * PCP VIDYA * Pharmacy [facility] * Preadmission Environment Home Alone * ADLs Independent * Equipment Cane Flores Sequeira * List name and contact numbers for known caregivers / representatives who currently or will assist patient after discharge: DAVID SEQUEIRA [phone] * Verbal permission to speak to the caregivers and representatives has been obtained from the patient. N/A * Community resources currently utilized None * Additional services required to return to the preadmission environment? Yes * Can the patient safely return to the preadmission environment? Yes * Has this patient been hospitalized within the prior 30 days at any hospital? No Coverage Notice Reviewer: [id number] Diane Montiel Notice Issued Date-Time: 05/20/2020 12:50 Notice Type: IM Discharge Notice Notice Delivered To: Patient Relationship to Patient: Strip Cleaner Name: Delivery Method: HAND - Hand Delivered Andra Days: Prior Verbal Notification: Recipient Understood Notice: Yes Recipient Signature: Yes Med Rec Note Co-signed by Attending: Coverage Notice Comment: IMM SERVED AND EXPLAINED Reviewer: [email or web address] Montiel Notice Issued Date-Time: 05/20/2020 12:50 Notice Type: Patient Choice Letter Notice Delivered To: Patient Relationship to Patient: Strip Cleaner Name: Delivery Method: HAND - Hand Delivered Andra Days: Prior Verbal Notification: Recipient Understood Notice: Yes Recipient Signature: Yes Med Rec Note Co-signed by Attending: Coverage Notice Comment: [facility] DID NOT CARE LONG THEY TOOK HER INSURANCE Last DP export: 05/20/20 11:57 a Patient Name: MARLI SEQUEIRA Page [phone] at 1305 All edits/amendments must be made on the electronic document DICTATION DATE: 05/20/20 1304 DIVISION OPERATIONS MANAGER: ADAM 05/20/20 1304 RPT#: [id number] DC DATE: STATUS: ADM IN [facility] [address] [place] [address] END OF REPORT
--- NOTE | 2020-05-20 13:13 | MORECARE ---
CASE MANAGEMENT DISCHARGE SUMMARY PATIENT: MARLI SEQUEIRA UNIT: [id number] ADM DATE: 05/16/20 AGE: 69 : 50 SEX: F ROOM/BED: D.2217 AUTHOR: NASEEM,DOC PHYSICIAN: REFERRING PHYSICIAN: CRESCENCIO GOODE MD DATE OF SERVICE: 05/20/20 Discharge Plan Patient Name: MARLI SEQUEIRA Facility: [facility]:[place] : 1950 Planned Disposition: Home with Home Health Anticipated Discharge Date: Discharge Date: Expected LOS: Initial Reviewer: [email or web address] Initial Review Date: 05/16/2020 Generated: 05/20/20 2:12 pm Comments DCP- Discharge Planning Updated by [email or web address]: Stefanie Montiel on 05/20/20 12:[address] I have sent the referral to Care ( they do not take her insurance) I sent it to [place], they will see her on Saturday. CM to follow and assist as needed DCP- Discharge Planning Updated by [email or web address]: Stefanie Montiel on 05/20/20 12:[address] Patient Name: MARLI SEQUEIRA Admission Status: ER Accout number: [id number] Admission Date: 05-16-2020 : 1950 Admission Diagnosis:ACUTE KIDNEY FAILURE, UNSPECIFIED Attending: CRESCENCIO TELLEZ Current LOS: 4 Anticipated DC Date: Planned Disposition: Home with Home Health Primary Insurance: [employer] ADV Discharge Planning Comments: CM met with patient to complete initial dc planning assessment. CM educated patient on the CM role and verbal consent given by patient to complete assessment. Patient lives at home by herself where she states she is independent with her care. At discharge patient plans to return home and feels this is a safe discharge. CM discussed availability of home health, rehab services, and medical equipment. Patient has a cane and a walker at home. She does not use them all the time. Patient is agreeable to home health where as long as they take her insurance. IMM served and explained. She is trying to get a hold of her sister to drive her home. She said that her sister also has her keys. IMM served and signed. Patient denied known discharge needs at this time. CM will continue to follow and will assist as needed with dc plans/needs. Dealer Analyst: Stefanie Montiel DCPIA - Discharge Planning Initial Assessment Updated by [id number]: Stefanie Montiel on 05/20/20 12:57 pm * Is the patient Alert and Oriented? Yes * How many steps to enter\exit or inside your home? 1 FLIGHT * PCP VIDYA * Pharmacy [facility] * Preadmission Environment Home Alone * ADLs Independent * Equipment Cane Rolling Walker * List name and contact numbers for known caregivers / representatives who currently or will assist patient after discharge: DAVID SEQUEIRA [phone] * Verbal permission to speak to the caregivers and representatives has been obtained from the patient. N/A * Community resources currently utilized None * Additional services required to return to the preadmission environment? Yes * Can the patient safely return to the preadmission environment? Yes * Has this patient been hospitalized within the prior 30 days at any hospital? No External Providers External Provider: [facility] Next Contact Date: Service Request Date: Service Type: Resolution: Reviewer: Comments: Coverage Notice Reviewer: [id number] Diane Montiel Notice Issued Date-Time: 05/20/2020 12:50 Notice Type: IM Discharge Notice Notice Delivered To: Patient Relationship to Patient: Accounting Consultant Name: Delivery Method: HAND - Hand Delivered Andra Days: Prior Verbal Notification: Recipient Understood Notice: Yes Recipient Signature: Yes Med Rec Note Co-signed by Attending: Coverage Notice Comment: IMM SERVED AND EXPLAINED Reviewer: [id number] Diane Montiel Notice Issued Date-Time: 05/20/2020 12:50 Notice Type: Patient Choice Letter Notice Delivered To: Patient Relationship to Patient: Accounting Consultant Name: Delivery Method: HAND - Hand Delivered Andra Days: Prior Verbal Notification: Recipient Understood Notice: Yes Recipient Signature: Yes Med Rec Note Co-signed by Attending: Coverage Notice Comment: [facility] DID NOT CARE LONG THEY TOOK HER INSURANCE Last DP export: 05/20/20 12:05 p Patient Name: MARLI SEQUEIRA Page [phone] at 1313 All edits/amendments must be made on the electronic document DICTATION DATE: 05/20/20 1312 DIRECTOR COLLEGE: ADAM 05/20/20 1312 RPT#: [id number] DC DATE: STATUS: ADM IN [facility] [address] [place] [address] END OF REPORT
--- NOTE | 2020-05-20 15:00 | NUR ---
DISCHARGE INSTRUCTIONS,STATES UNDERSTANDING. IV DCD WITH CATH TIP INTACT. WAITING ON RIDE FOR TRANSPORT HOME
--- NOTE | 2020-05-20 15:57 | NUR ---
LEFT UNIT VIA WHEELCHAIR FOR TRANSPORT HOME.
--- NOTE | 2020-05-23 09:27 | MORECARE ---
CASE MANAGEMENT DISCHARGE SUMMARY PATIENT: MARLI SEQUEIRA UNIT: [id number] ADM DATE: 05/16/20 AGE: 69 : 50 SEX: F ROOM/BED: D.2217 AUTHOR: NASEEM,DOC PHYSICIAN: REFERRING PHYSICIAN: CRESCENCIO GOODE MD DATE OF SERVICE: 05/23/20 Discharge Plan Patient Name: MARLI SEQUEIRA Facility: [facility]:[place] : 1950 Planned Disposition: Home with Home Health Anticipated Discharge Date: Discharge Date: 05/20/2020 Expected LOS: Initial Reviewer: [email or web address] Initial Review Date: 05/16/2020 Generated: 05/23/20 10:26 am Comments DCP- Discharge Planning Updated by [email or web address]: Stefanie Montiel on 05/20/20 12:[address] I have sent the referral to [facility] ( they do not take her insurance) I sent it to [place], they will see her on Saturday. CM to follow and assist as needed DCP- Discharge Planning Updated by [email or web address]: Stefanie Montiel on 05/20/20 12:[address] Patient Name: MARLI SEQUEIRA Admission Status: ER Accout number: [id number] Admission Date: 05-16-2020 : 1950 Admission Diagnosis:ACUTE KIDNEY FAILURE, UNSPECIFIED Attending: CRESCENCIO TELLEZ Current LOS: 4 Anticipated DC Date: Planned Disposition: Home with Home Health Primary Insurance: [employer] ADV Discharge Planning Comments: CM met with patient to complete initial dc planning assessment. CM educated patient on the CM role and verbal consent given by patient to complete assessment. Patient lives at home by herself where she states she is independent with her care. At discharge patient plans to return home and feels this is a safe discharge. CM discussed availability of home health, rehab services, and medical equipment. Patient has a cane and a walker at home. She does not use them all the time. Patient is agreeable to home health where as long as they take her insurance. IMM served and explained. She is trying to get a hold of her sister to drive her home. She said that her sister also has her keys. IMM served and signed. Patient denied known discharge needs at this time. CM will continue to follow and will assist as needed with dc plans/needs. Urban Gardening Specialist: Stefanie Montiel DCPIA - Discharge Planning Initial Assessment Updated by [email or web address]: Stefanie Montiel on 05/20/20 12:57 pm * Is the patient Alert and Oriented? Yes * How many steps to enter\exit or inside your home? 1 FLIGHT * PCP VIDYA * Pharmacy [facility] * Preadmission Environment Home Alone * ADLs Independent * Equipment Cane Rolling Walker * List name and contact numbers for known caregivers / representatives who currently or will assist patient after discharge: DAVID SEQUEIRA [phone] * Verbal permission to speak to the caregivers and representatives has been obtained from the patient. N/A * Community resources currently utilized None * Additional services required to return to the preadmission environment? Yes * Can the patient safely return to the preadmission environment? Yes * Has this patient been hospitalized within the prior 30 days at any hospital? No Coverage Notice Reviewer: [id number] Diane Montiel Notice Issued Date-Time: 05/20/2020 12:50 Notice Type: IM Discharge Notice Notice Delivered To: Patient Relationship to Patient: Couture Dressmaker Name: Delivery Method: HAND - Hand Delivered Andra Days: Prior Verbal Notification: Recipient Understood Notice: Yes Recipient Signature: Yes Med Rec Note Co-signed by Attending: Coverage Notice Comment: IMM SERVED AND EXPLAINED Reviewer: [id number] Diane Montiel Notice Issued Date-Time: 05/20/2020 12:50 Notice Type: Patient Choice Letter Notice Delivered To: Patient Relationship to Patient: Couture Dressmaker Name: Delivery Method: HAND - Hand Delivered Andra Days: Prior Verbal Notification: Recipient Understood Notice: Yes Recipient Signature: Yes Med Rec Note Co-signed by Attending: Coverage Notice Comment: [facility] DID NOT CARE LONG THEY TOOK HER INSURANCE Last DP export: 05/20/20 12:13 p Patient Name: MARLI SEQUEIRA Page [phone] at 0927 All edits/amendments must be made on the electronic document DICTATION DATE: 05/23/20926 MARKETING TRAFFIC MANAGER: ADAM 05/23/20926 RPT#: [id number] DC DATE:05/20/20 STATUS: DIS IN [facility] [address] [facility] [place] [address] END OF REPORT
== END 2020-05-20 15:57 | disposition home or self-care (01) | DRG 683 ==
LOC: D.ER 13:13 → D.MS 16:34
PROVIDERS: Family Medicine; ADMIT Family Medicine Adult Medicine; ATTEND Family Medicine Adult Medicine
DX: N17.9 Acute kidney failure, unspecified (principal); F17.203 Nicotine dependence unspecified, with withdrawal; N39.0 Urinary tract infection, site not specified; E87.6 Hypokalemia; E86.0 Dehydration; I10 Essential (primary) hypertension; I25.10 Atherosclerotic heart disease of native coronary artery without angina pectoris; N95.9 Unspecified menopausal and perimenopausal disorder; D64.9 Anemia, unspecified; B96.20 Unspecified Escherichia coli [E. coli] as the cause of diseases classified elsewhere; E83.42 Hypomagnesemia; M79.601 Pain in right arm; Z91.81 History of falling; Z86.73 Personal history of transient ischemic attack (TIA), and cerebral infarction without residual deficits